=== PATIENT | male | born 1980 | race Caucasian/White ===

== ENCOUNTER 2021-01-30 13:22 | Emergency (ER) | payer BC ==
[~2021-01-30] VITALS: Ht 193 cm; Wt 131.5 kg
[2021-01-30] MEDS ORDERED: SODIUM CHLORIDE 0.9% 1000ML 1,000 ML IV STA (13:26)
[2021-01-30 13:39] LABS: BASOPHILS % 0.6 % (0.0-1.0); EOSINOPHILS # (AUTO) 0.3 (0.0-0.4); EOSINOPHILS % 4.2 % (0.0-6.0); HEMATOCRIT 44.1 % (38.2-49.6); HEMOGLOBIN 14.4 g/dL (14.0-18.0); LYMPHOCYTES # (AUTO) 1.3 (1.0-3.2); LYMPHOCYTES % 20.1 % (18.0-39.1); MEAN CORPUSCULAR HEMOGLOBIN 28.1 pg (28-32); MEAN CORPUSCULAR HGB CONC 32.7 g/dL (31-35); MEAN CORPUSCULAR VOLUME 86.1 fL (81-99); MONOCYTES # (AUTO) 0.3 (0.2-0.8); MONOCYTES % 4.8 % (4.4-11.3); NEUTROPHILS # (AUTO) 4.4 (2.1-6.9); PLATELET COUNT 208 x10e3/uL (140-360); RED BLOOD COUNT 5.12 x10e6/uL (4.3-5.7)
[2021-01-30] MEDS ORDERED: KETOROLAC TROMETHAMINE 30 MG/ML VIAL IV STA (13:55)
[2021-01-30 13:57] LABS: ALANINE AMINOTRANSFERASE 25 IU/L (0-55); ALBUMIN 3.8 g/dL (3.5-5.0); ALKALINE PHOSPHATASE 78 IU/L (40-150); ANION GAP 14.6 mmol/L (8-16); BLOOD UREA NITROGEN 10 mg/dL (7-26); BUN/CREATININE RATIO 11 (6-25); CALCIUM 8.5 mg/dL (8.4-10.2); CARBON DIOXIDE 22 mmol/L (22-29); CHLORIDE 106 mmol/L (98-107); CREATINE KINASE 76 IU/L (30-200); CREATININE, SERUM 0.89 mg/dL (0.72-1.25); EST GLOMERULAR FILTRATION RATE > 60 ML/MIN (60-); GLUCOSE 182 mg/dL (74-118); POTASSIUM 3.6 mmol/L (3.5-5.1); SODIUM 139 mmol/L (136-145)
[2021-01-30 14:04] LABS: CLARITY,URINE CLEAR (CLEAR); COLOR,URINE YELLOW (YELLOW); KETONES,URINE NEGATIVE (NEGATIVE); LEUKOCYTE ESTERASE ,URINE NEGATIVE (NEGATIVE); NITRITE,URINE NEGATIVE (NEGATIVE); PROTEIN,URINE DIPSTICK NEGATIVE (NEGATIVE); URINE UROBILINOGEN 0.2 mg/dL (0.2 - 1)
[2021-01-30 14:15] LABS: RBC,URINE 0-5 /HPF (0-5)
[2021-01-30] MEDS ORDERED: MORPHINE SULFATE INJ 4 MG/ML INJ 1ML IV STA (14:58)
[2021-01-30] MEDS ORDERED: ONDANSETRON HCL INJ 2MG/ML 2ML 2 MG/ML VIAL IV STA (14:58)
[2021-01-30] MEDS ORDERED: MORPHINE SULFATE INJ 4 MG/ML INJ 1ML ONE (15:11)
[2021-01-30] MEDS ORDERED: ONDANSETRON HCL INJ 2MG/ML 2ML 2 MG/ML VIAL ONE (15:11)
[2021-01-30] MEDS ORDERED: TYLENOL # 31 EA PO (15:27)
[2021-01-30 15:46] VITALS: BP 119/77
== END 2021-01-30 15:47 | disposition home or self-care (01) ==
LOC: ER 13:31
DX: M51.26 Other intervertebral disc displacement, lumbar region (principal); M47.897 Other spondylosis, lumbosacral region; M79.10 Myalgia, unspecified site
CPT/HCPCS: 36415; 71045; 72128; 72131; 80053; 81001; 82550; 82553; 84484; 85025; 99284; J1885; J2270; J2405; J7030